=== PATIENT | male | born 1985 ===

== ENCOUNTER 2019-12-28 19:57 | Emergency (ER) | payer BC ==
[~2019-12-28] VITALS: Ht 180.3 cm; Wt 72.6 kg
== END 2019-12-28 21:56 | disposition left against medical advice (07) ==
LOC: ED 19:57
DX: F10.239 Alcohol dependence with withdrawal, unspecified (principal)

== ENCOUNTER 2019-12-28 23:07 | Emergency (ER) | payer BC | END 2019-12-28 23:23 | disposition left against medical advice (07) | LOC: ED 23:07 | DX: F19.139 Other psychoactive substance abuse with withdrawal, unspecified (principal); Z53.21 Procedure and treatment not carried out due to patient leaving prior to being seen by health care provider ==